=== PATIENT | female | born 1945 | race African-American/Black ===

== ENCOUNTER 2023-03-20 21:00 | Emergency (ER) | payer MEDICARE ==
[~2023-03-20] VITALS: Ht 152.4 cm; Wt 41.0 kg
[2023-03-20 21:24] VITALS: O2SAT 97
[2023-03-20] MEDS ORDERED: ACETAMINOPHEN 325MG TABLET PO ONE (23:15)
[2023-03-21] LABS: BASOPHILS % 0.5 % (0.0-2.0); EOSINOPHILS % 0.8 % (0.0-5.0); HEMATOCRIT. 40.7 % (36.0-48.0); HEMOGLOBIN. 13.4 g/dL (12.0-16.0); LYMPHOCYTES % 16.8 % (20.0-50.0); MEAN CORPUSCULAR HEMOGLOBIN 30.4 pg (28.0-32.0); MEAN CORPUSCULAR VOLUME 92.3 fL (81.0-99.0); MEAN PLATELET VOLUME 9.5 fl (7.4-10.4); NEUTROPHILS % 76.9 % (40.0-76.0); PLATELET 267 x1000/uL (130-400); RED BLOOD CELL COUNT 4.41 mill/uL (4.2-5.4); RED CELL DISTRIBUTION WIDTH 15.3 % (11.6-14.6)
[2023-03-21 00:23] LABS: ALANINE AMINOTRANSFERASE 19 IU/L (10-49); ALBUMIN 3.8 g/dL (3.2-4.8); ASPARTATE AMINOTRANSFERASE 27 IU/L (<34); BILIRUBIN TOTAL 0.4 mg/dL (0.1-1.0); CALCIUM 8.8 mg/dL (8.7-10.4); CARBON DIOXIDE 25 mEq/L (21-32); CHLORIDE 110 mEq/L (98-107); CREATININE 0.6 mg/dL (0.6-1.0); GLUCOSE 93 mg/dL (70-105); POTASSIUM 3.8 mEq/L (3.5-5.1); PROTEIN TOTAL 6.2 g/dL (6.0-8.3); SODIUM 141 mEq/L (136-145); UREA NITROGEN BLOOD 9 mg/dL (9-23)
[2023-03-21 00:26] LABS: ETHANOL BLOOD < 10 mg/dL (<10)
[2023-03-21] MEDS ORDERED: ACET-2708 MT (02:23)
[2023-03-21 02:30] VITALS: BP 136/78; PULSE 89; RESP 16; TEMP 97.9
== END 2023-03-21 04:00 | disposition home or self-care (01) ==
LOC: ER 21:00
DX: R25.2 Cramp and spasm (principal); R55 Syncope and collapse; I10 Essential (primary) hypertension; Z00.00 Encounter for general adult medical examination without abnormal findings; Z86.73 Personal history of transient ischemic attack (TIA), and cerebral infarction without residual deficits
CPT/HCPCS: 36415; 71045; 80053; 80320; 83880; 85025; 93005; 93971; 99285; G0480